=== PATIENT | female | born 1945 | race Caucasian/White ===

== ENCOUNTER 2017-06-21 10:56 | Inpatient (IN) | payer MEDICARE, OTHER ==
[~2017-06-21] VITALS: Ht 165.1 cm; Wt 88.0 kg
[~2017-06-21 10:56] MED LIST: ACET-812 PO; ADAL40PE SUBCUT; FLUO10CA30 PO; OMEP20CA10 PO; VITAMIN B 12 PO
[2017-06-21] MEDS ORDERED: normal saline 1000ML IV soln IVB ONE ×2 (11:30→14:10)
[2017-06-21] MEDS ORDERED: pantoprazole 40 MG vial IV ONE (11:30)
[2017-06-21 11:59] LABS: BASOPHILS % (AUTO) 0.1 % (0-1); EOSINOPHILS % (AUTO) 0.2 % (0-6); HEMATOCRIT 31.9 % (35.0-45.0); HEMOGLOBIN 10.7 g/dl (12.0-16.0); LYMPHOCYTES # (AUTO) 0.8 X10'3 (1.1-4.8); LYMPHOCYTES % (AUTO) 6.3 % (21-51); MEAN CORPUSCULAR HEMOGLOBIN 28.3 PG (27.0-31.0); MEAN CORPUSCULAR HGB CONC 33.7 % (33.0-36.5); MEAN CORPUSCULAR VOLUME 84.1 FL (78-98); MEAN PLATELET VOLUME 7.1 FL (7.4-10.4); MONOCYTES # (AUTO) 0.5 X10'3 (0-0.9); MONOCYTES % (AUTO) 3.4 % (2-12); NEUTROPHILS # (AUTO) 11.9 X10'3 (1.8-7.7); PLATELET COUNT 260 X10'3 (140-440); RED BLOOD COUNT 3.79 X10'6 (4.20-5.60); RED CELL DISTRIBUTION WIDTH 14.8 % (11.5-14.5); WHITE BLOOD COUNT 13.3 X10'3 (4.5-11.0)
[2017-06-21 12:15] LABS: ALANINE AMINOTRANSFERASE 16 U/L (12-78); ALBUMIN 2.8 G/DL (3.4-5.0); ALBUMIN/GLOBULIN RATIO 0.7 (1.1-1.5); ALKALINE PHOSPHATASE 65 IU/L (46-116); ANION GAP 10 (8-16); ASPARTATE AMINO TRANSFERASE 18 U/L (10-37); BILIRUBIN,TOTAL 0.3 MG/DL (0.1-1.0); BLOOD UREA NITROGEN 16 MG/DL (7-18); BUN/CREATININE RATIO 17.4 (6.6-38.0); CALCIUM 8.9 MG/DL (8.5-10.1); CHLORIDE 109 MMOL/L (99-107); CREATININE 0.92 MG/DL (0.40-0.90); GLUCOSE 107 MG/DL (70-104); SODIUM 142 MMOL/L (135-145); TOTAL CARBON DIOXIDE 22.9 MMOL/L (24-32); TOTAL PROTEIN 6.9 G/DL (6.4-8.2); eGFR 60 ML/MIN
[2017-06-21 13:08] LABS: CLARITY,URINE SLIGHTLY CLOUDY (Clear); COLOR,URINE YELLOW (Yellow); GLUCOSE, URINE NEGATIVE (Neg); KETONES,URINE NEGATIVE (Neg); LEUKOCYTE ESTERASE ,URINE NEGATIVE (Neg); NITRITES, URINE NEGATIVE (Neg); OCCULT BLOOD,URINE MODERATE (Neg); PH,URINE 5.5 (4.8-8.0); PROTEIN,URINE NEGATIVE (Neg); UROBILINOGEN,URINE 0.2 E.U/dL (0.2-1.0)
[2017-06-21 13:11] LABS: UA COLLECTION TYPE FOLEY CATH
[2017-06-21] MEDS ORDERED: CARV-50 PO (13:15)
[2017-06-21] MEDS ORDERED: PRED1TAB PO (13:15)
[2017-06-21] MEDS ORDERED: WARF2.5T82 PO (13:15)
[2017-06-21] MEDS ORDERED: ASPI-611 PO (13:15)
[2017-06-21] MEDS ORDERED: AMLO2.5T2 PO (13:15)
[2017-06-21] MEDS ORDERED: GABA-530 PO (13:15)
[2017-06-21] MEDS ORDERED: DONE5TAB26 PO (13:15)
[2017-06-21] MEDS ORDERED: SOTA80TA69 PO (13:15)
[2017-06-21] MEDS ORDERED: KRIL1CAP22 PR (13:15)
[2017-06-21] MEDS ORDERED: QUET25TA PO (13:15)
[2017-06-21] MEDS ORDERED: GLIM1TAB46 PO (13:15)
[2017-06-21] MEDS ORDERED: LOSA50TA3 PO (13:15)
[2017-06-21 13:19] LABS: BACTERIA,URINE FEW /HPF (Neg); MUCUS STRANDS FEW /LPF (Neg); SQUAMOUS EPITHELIAL CELL,UR FEW /LPF (FEW); WBC CLUMPS,URINE FEW /HPF (NEGATIVE)
[2017-06-21] MEDS ORDERED: piperacillin/tazo 3.375gm/50ml 50 ML IV ONE (14:05)
[2017-06-21] MEDS ORDERED: morphine 4 MG/ML inj SYRINge IV ONE (14:30)
[2017-06-21] MEDS ORDERED: OMEP-50 PO (14:44)
[2017-06-21] MEDS ORDERED: AMOX-580 PO (14:44)
[2017-06-21] MEDS ORDERED: LOSA25TA21 PO (14:44)
[2017-06-21] MEDS ORDERED: mag hydrox/Alum hydrox/simeth 30ml oral suspension PO PRN (15:15)
[2017-06-21] MEDS ORDERED: magnesium hydroxide 30ml (MOM) UD suspension PO PRN (15:15)
[2017-06-21] MEDS ORDERED: acetaminophen 650mg rectal suppository RC PRN (15:15)
[2017-06-21] MEDS ORDERED: diphenhydrAMINE 50 mg/ml inj IV PRN (15:15)
[2017-06-21] MEDS ORDERED: ondansetron/PF 4mg/2ml inj IV PRN (15:15)
[2017-06-21] MEDS ORDERED: diphenhydrAMINE 25mg capsule PO PRN (15:15)
[2017-06-21] MEDS ORDERED: metoclopramide 5 mg/ml inj IV PRN (15:15)
[2017-06-21] MEDS ORDERED: HYDROmorphone inj. 0.5 MG/0.5 ML DISP.SYRIN IV PRN ×2 (15:15)
[2017-06-21] MEDS ORDERED: bisacodyl 10mg suppository rectal RC PRN (15:15)
[2017-06-21] MEDS ORDERED: acetaminophen 325mg tablet PO PRN ×2 (15:15)
[2017-06-21] MEDS ORDERED: BUPIVAcaine/PF 2.5 mg/ml (0.25%) 30ml vial IJ ONE (15:25)
[2017-06-21] MEDS ORDERED: pantoprazole 40 MG vial IV SCH (15:25)
[2017-06-21 16:56] LABS: PARTIAL THROMBOPLASTIN TIME 27 SECONDS (22-32); PROTHROMBIN TIME 10.1 SECONDS (9.0-12.0)
[2017-06-21 16:58] LABS: HEMOGLOBIN A1C 5.5 % (4.5-6.2)
[2017-06-21] MEDS ORDERED: vancomycin inj 1,250 MG in normal saline 250ml IV soln 250 ML IV SCH (17:00)
[2017-06-21 17:14] LABS: CREATINE KINASE 13 U/L (26-192); LIPASE 119 U/L (73-393); MAGNESIUM 1.5 MG/DL (1.5-2.4); PHOSPHORUS 2.3 MG/DL (2.3-4.5)
[2017-06-21] MEDS: morphine 4 MG/ML inj SYRINge IV PRN (18:49)
[2017-06-21] MEDS: normal saline 1000ml 1,000 ML IV SCH (19:29)
[2017-06-21] MEDS ORDERED: vancomycin/NS 1 GM ADD-VANTAGE 250 ML IV SCH (20:00)
[2017-06-21] MEDS: acetaminophen 325mg tablet PO SCH (20:00)
[2017-06-21] MEDS ORDERED: temazepam 15mg capsule PO PRN (21:00)
[2017-06-21] MEDS: CefTRIAXone 2gm/NS 100ml IVPB 100 ML IV SCH (21:08)
[2017-06-21] MEDS: docusate sod 100mg capsule PO SCH (21:08)
[2017-06-22] VITALS (7 sets, daily range): BP systolic 114–152; BP diastolic 51–80
[2017-06-22] MEDS: normal saline 1000ml 1,000 ML IV SCH ×3 (01:14→17:19)
[2017-06-22 03:44] LABS: CHOL/HDL RATIO 2.3 (0.00-4.99); CHOLESTEROL 113 MG/DL (0-200); HDL CHOLESTEROL 49 MG/DL (35-60); LDL CHOLESTEROL 53 MG/DL (50-100); TRIGLYCERIDES 54 MG/DL (20-135); TROPONIN I < 0.04 NG/ML (0.0-0.05)
[2017-06-22] MEDS: morphine 4 MG/ML inj SYRINge IV PRN ×4 (03:48→20:12)
[2017-06-22] MEDS: vancomycin inj 1,250 MG in normal saline 250ml IV soln 250 ML IV SCH ×2 (05:31→17:19)
[2017-06-22] MEDS ORDERED: pantoprazole 40 MG vial IV SCH (08:00)
[2017-06-22] MEDS ORDERED: OMEPRAZOLE PO SCH (08:00)
[2017-06-22] MEDS: acetaminophen 325mg tablet PO SCH ×2 (09:04→20:13)
[2017-06-22] MEDS: losartan 25mg tablet PO SCH (09:04)
[2017-06-22] MEDS: docusate sod 100mg capsule PO SCH ×2 (09:04→20:13)
[2017-06-22] MEDS: CefTRIAXone 2gm/NS 100ml IVPB 100 ML IV SCH (09:05)
[2017-06-22 10:55] LABS: BASOPHILS % (AUTO) 0.3 % (0-1); EOSINOPHILS # (AUTO) 0.2 X10'3 (0-0.9); EOSINOPHILS % (AUTO) 1.3 % (0-6); HEMOGLOBIN 9.2 g/dl (12.0-16.0); LYMPHOCYTES # (AUTO) 1.6 X10'3 (1.1-4.8); LYMPHOCYTES % (AUTO) 13.5 % (21-51); MEAN CORPUSCULAR HEMOGLOBIN 28.6 PG (27.0-31.0); MEAN PLATELET VOLUME 6.9 FL (7.4-10.4); MONOCYTES # (AUTO) 0.8 X10'3 (0-0.9); MONOCYTES % (AUTO) 7.3 % (2-12); NEUTROPHILS # (AUTO) 8.9 X10'3 (1.8-7.7); NEUTROPHILS % (AUTO) 77.6 % (42-75); PLATELET COUNT 215 X10'3 (140-440); RED BLOOD COUNT 3.22 X10'6 (4.20-5.60); RED CELL DISTRIBUTION WIDTH 14.9 % (11.5-14.5); WHITE BLOOD COUNT 11.5 X10'3 (4.5-11.0)
[2017-06-22 11:13] LABS: ALANINE AMINOTRANSFERASE 13 U/L (12-78); ALBUMIN 2.3 G/DL (3.4-5.0); ALBUMIN/GLOBULIN RATIO 0.6 (1.1-1.5); ALKALINE PHOSPHATASE 50 IU/L (46-116); ANION GAP 10 (8-16); ASPARTATE AMINO TRANSFERASE 9 U/L (10-37); BILIRUBIN,TOTAL 0.4 MG/DL (0.1-1.0); BLOOD UREA NITROGEN 14 MG/DL (7-18); BUN/CREATININE RATIO 13.3 (6.6-38.0); CALCIUM 8.2 MG/DL (8.5-10.1); CHLORIDE 109 MMOL/L (99-107); CREATININE 1.05 MG/DL (0.40-0.90); GLUCOSE 104 MG/DL (70-104); POTASSIUM 3.6 MMOL/L (3.5-5.1); SODIUM 142 MMOL/L (135-145); TOTAL CARBON DIOXIDE 23.5 MMOL/L (24-32); eGFR 51 ML/MIN
[2017-06-22] MEDS: celeCOXIB 100mg capsule PO SCH ×2 (11:40→20:00)
[2017-06-22] MEDS: pantoprazole 40mg Tablet.DR PO SCH (11:50)
[2017-06-22] MEDS ORDERED: iohexol 350MG/ML 100ml bottle IV ONE (12:28)
[2017-06-22 12:50] LABS: % IRON SATURATION 5 % (11-46); IRON 12 UG/DL (49-151); TOTAL IRON BINDING CAPACITY 225 UG/DL (259-388)
[2017-06-22] MEDS: lactobacillus rhamnosus 10,000 MMU CELLS/CAPSULE PO SCH (20:12)
[2017-06-23] MEDS: morphine 4 MG/ML inj SYRINge IV PRN ×2 (00:31→09:03)
[2017-06-23 03:00] VITALS: BP 136/62
[2017-06-23] MEDS ORDERED: VANCOMYCIN LEVEL IV ONE (04:30)
[2017-06-23] MEDS: vancomycin inj 1,250 MG in normal saline 250ml IV soln 250 ML IV SCH (05:28)
[2017-06-23 05:35] LABS: BASOPHILS % (AUTO) 0.4 % (0-1); EOSINOPHILS # (AUTO) 0.1 X10'3 (0-0.9); EOSINOPHILS % (AUTO) 2.2 % (0-6); HEMATOCRIT 25.8 % (35.0-45.0); HEMOGLOBIN 8.7 g/dl (12.0-16.0); LYMPHOCYTES # (AUTO) 1.8 X10'3 (1.1-4.8); LYMPHOCYTES % (AUTO) 27.4 % (21-51); MEAN CORPUSCULAR HEMOGLOBIN 28.8 PG (27.0-31.0); MEAN CORPUSCULAR HGB CONC 33.6 % (33.0-36.5); MEAN CORPUSCULAR VOLUME 85.7 FL (78-98); MEAN PLATELET VOLUME 6.9 FL (7.4-10.4); MONOCYTES # (AUTO) 0.6 X10'3 (0-0.9); NEUTROPHILS # (AUTO) 3.9 X10'3 (1.8-7.7); PLATELET COUNT 201 X10'3 (140-440); RED BLOOD COUNT 3.01 X10'6 (4.20-5.60); RED CELL DISTRIBUTION WIDTH 14.7 % (11.5-14.5); WHITE BLOOD COUNT 6.4 X10'3 (4.5-11.0)
[2017-06-23 06:00] VITALS: BP 141/68
[2017-06-23] MEDS: docusate sod 100mg capsule PO SCH ×2 (08:00→20:28)
[2017-06-23] MEDS: celeCOXIB 100mg capsule PO SCH ×2 (08:00→14:27)
[2017-06-23] MEDS: acetaminophen 325mg tablet PO SCH ×2 (08:38→20:30)
[2017-06-23] MEDS: pantoprazole 40mg Tablet.DR PO SCH (08:39)
[2017-06-23] MEDS: losartan 25mg tablet PO SCH (08:39)
[2017-06-23] MEDS: lactobacillus rhamnosus 10,000 MMU CELLS/CAPSULE PO SCH ×2 (08:39→20:28)
[2017-06-23] MEDS: CefTRIAXone 2gm/NS 100ml IVPB 100 ML IV SCH (08:40)
[2017-06-23] MEDS: vancomycin/NS 1 GM ADD-VANTAGE 250 ML IV SCH ×2 (10:29→20:28)
[2017-06-23 10:58] LABS: ALBUMIN 2.2 G/DL (3.4-5.0); ANION GAP 7 (8-16); BLOOD UREA NITROGEN 10 MG/DL (7-18); BUN/CREATININE RATIO 10.6 (6.6-38.0); CALCIUM 8.5 MG/DL (8.5-10.1); CHLORIDE 112 MMOL/L (99-107); CREATININE 0.94 MG/DL (0.40-0.90); GLUCOSE 113 MG/DL (70-104); POTASSIUM 3.5 MMOL/L (3.5-5.1); SODIUM 144 MMOL/L (135-145); TOTAL CARBON DIOXIDE 24.9 MMOL/L (24-32); eGFR 58 ML/MIN
[2017-06-23 11:00] VITALS: BP 129/51
[2017-06-23 15:00] VITALS: BP 160/58
[2017-06-23 18:00] VITALS: BP 155/69
[2017-06-23] MEDS: normal saline 1000ml 1,000 ML IV SCH ×2 (18:37→23:07)
[2017-06-23] MEDS ORDERED: gadopentetate dimeglumine 7.5 MMOL/15 ML syringe ONE (19:49)
[2017-06-23 22:00] VITALS: BP 173/80
[2017-06-24 02:00] VITALS: BP 138/75
[2017-06-24 05:15] LABS: BASOPHILS % (AUTO) 0.7 % (0-1); EOSINOPHILS # (AUTO) 0.1 X10'3 (0-0.9); EOSINOPHILS % (AUTO) 2.9 % (0-6); HEMATOCRIT 25.2 % (35.0-45.0); HEMOGLOBIN 8.5 g/dl (12.0-16.0); LYMPHOCYTES # (AUTO) 1.3 X10'3 (1.1-4.8); LYMPHOCYTES % (AUTO) 29.5 % (21-51); MEAN CORPUSCULAR HEMOGLOBIN 28.4 PG (27.0-31.0); MEAN CORPUSCULAR HGB CONC 33.8 % (33.0-36.5); MEAN CORPUSCULAR VOLUME 84.2 FL (78-98); MEAN PLATELET VOLUME 7.1 FL (7.4-10.4); MONOCYTES # (AUTO) 0.4 X10'3 (0-0.9); MONOCYTES % (AUTO) 9.8 % (2-12); NEUTROPHILS # (AUTO) 2.6 X10'3 (1.8-7.7); NEUTROPHILS % (AUTO) 57.1 % (42-75); PLATELET COUNT 208 X10'3 (140-440); RED BLOOD COUNT 2.99 X10'6 (4.20-5.60); RED CELL DISTRIBUTION WIDTH 14.9 % (11.5-14.5); WHITE BLOOD COUNT 4.6 X10'3 (4.5-11.0)
[2017-06-24 05:24] LABS: ALBUMIN 1.9 G/DL (3.4-5.0); ANION GAP 8 (8-16); BLOOD UREA NITROGEN 9 MG/DL (7-18); BUN/CREATININE RATIO 10.2 (6.6-38.0); CALCIUM 8.3 MG/DL (8.5-10.1); CHLORIDE 114 MMOL/L (99-107); CREATININE 0.88 MG/DL (0.40-0.90); GLUCOSE 103 MG/DL (70-104); POTASSIUM 3.5 MMOL/L (3.5-5.1); SODIUM 147 MMOL/L (135-145); TOTAL CARBON DIOXIDE 24.7 MMOL/L (24-32); eGFR 63 ML/MIN
[2017-06-24 06:00] VITALS: BP 133/60
[2017-06-24] MEDS: lactobacillus rhamnosus 10,000 MMU CELLS/CAPSULE PO SCH (07:45)
[2017-06-24] MEDS: CefTRIAXone 2gm/NS 100ml IVPB 100 ML IV SCH (07:45)
[2017-06-24] MEDS: pantoprazole 40mg Tablet.DR PO SCH (07:45)
[2017-06-24] MEDS: celeCOXIB 100mg capsule PO SCH (07:45)
[2017-06-24] MEDS: acetaminophen 325mg tablet PO SCH (07:46)
[2017-06-24] MEDS: docusate sod 100mg capsule PO SCH (07:46)
[2017-06-24] MEDS: losartan 25mg tablet PO SCH (07:46)
[2017-06-24] MEDS ORDERED: CELE100C98 PO (09:35)
[2017-06-25] MEDS ORDERED: VANCOMYCIN LEVEL IV NR (07:30)
== END 2017-06-24 12:00 | disposition home or self-care (01) | DRG 871 ==
LOC: ER 10:56 → ED HOLD 15:14 → PCU 3S 06-22 00:31
PROVIDERS: ADMIT Family Medicine; ATTEND Family Medicine
PROC: 00JU3ZZ Inspection of Spinal Canal, Percutaneous Approach (ICD-10-PCS; 2017-06-21)
PROC: B3201ZZ Computerized Tomography (CT Scan) of Thoracic Aorta using Low Osmolar Contrast (ICD-10-PCS; principal; 2017-06-22)
PROC: BW38YZZ Magnetic Resonance Imaging (MRI) of Head using Other Contrast (ICD-10-PCS; 2017-06-23)
DX: A41.9 Sepsis, unspecified organism (principal); I50.31 Acute diastolic (congestive) heart failure; N17.9 Acute kidney failure, unspecified; E87.0 Hyperosmolality and hypernatremia; N12 Tubulo-interstitial nephritis, not specified as acute or chronic; J98.11 Atelectasis; I11.0 Hypertensive heart disease with heart failure; M45.9 Ankylosing spondylitis of unspecified sites in spine; L52 Erythema nodosum; K57.30 Diverticulosis of large intestine without perforation or abscess without bleeding; G93.9 Disorder of brain, unspecified; N20.0 Calculus of kidney; D64.9 Anemia, unspecified; K58.0 Irritable bowel syndrome with diarrhea; M19.90 Unspecified osteoarthritis, unspecified site; F32.9 Major depressive disorder, single episode, unspecified; M54.2 Cervicalgia; R21 Rash and other nonspecific skin eruption; Z90.710 Acquired absence of both cervix and uterus; Z88.5 Allergy status to narcotic agent; Z79.899 Other long term (current) drug therapy; Z86.711 Personal history of pulmonary embolism
CPT/HCPCS: 36415; 62270; 70450; 70553; 71046; 71275; 74176; 80048; 80053; 80061; 80202; 81001; 82550; 82607; 82746; 83036; 83540; 83550; 83605; 83690; 83735; 83880; 84100; 84145; 84443; 84484; 85025; 85610; 85651; 85730; 86140; 87040; 87070; 87088; 87502; 87503; 93306; 96361; 96365; 96375; 99285; A9579; C9113; J0696; J2270; J2405; J2543; J3370; J3490; J7030; Q9967

== ENCOUNTER 2018-06-02 20:24 | Emergency (ER) | payer MEDICARE, OTHER ==
[~2018-06-02] VITALS: Ht 167.6 cm; Wt 75.5 kg
[~2018-06-02 20:24] MED LIST changes: -ADAL40PE SUBCUT; +CELE100C98 PO; -FLUO10CA30 PO; +HYDR25CA PO; +LOSA25TA41 PO; -OMEP20CA10 PO
[2018-06-02 20:31] VITALS: BP 153/80
--- NOTE | 2018-06-02 23:30 | NUR ---
states sore throat x2 days with occasional body aches and x1 diarrhea this am, went to urgent care this am and Rx z-leonardo, states has taken throat lozenges and oxycodone for pain without relief, and is here for something else for pain "so I can at least swallow"
[2018-06-02] MEDS ORDERED: dexamethasone sod phosphate 10mg/ml inj PO STA (23:31)
[2018-06-02] MEDS ORDERED: LIDO20SO16 PO (23:34)
== END 2018-06-02 23:45 | disposition home or self-care (01) ==
LOC: ER 20:25
DX: J02.9 Acute pharyngitis, unspecified (principal); J06.9 Acute upper respiratory infection, unspecified; I10 Essential (primary) hypertension; M19.90 Unspecified osteoarthritis, unspecified site; Z98.890 Other specified postprocedural states; Z88.5 Allergy status to narcotic agent; Z79.899 Other long term (current) drug therapy
CPT/HCPCS: 99282; J1100

== ENCOUNTER 2019-02-18 05:26 | Day surgery (SDC) | payer MEDICARE, OTHER ==
[2019-02-11 14:42] LABS: BASOPHILS % (AUTO) 0.8 % (0-1); EOSINOPHILS # (AUTO) 0.1 X10'3 (0-0.9); EOSINOPHILS % (AUTO) 1.5 % (0-6); LYMPHOCYTES # (AUTO) 2.1 X10'3 (1.1-4.8); LYMPHOCYTES % (AUTO) 34.7 % (21-51); MEAN CORPUSCULAR HEMOGLOBIN 31.3 PG (27.0-31.0); MEAN CORPUSCULAR HGB CONC 34.3 g/dL (33.0-36.5); MEAN CORPUSCULAR VOLUME 91.3 FL (78-98); MEAN PLATELET VOLUME 6.8 FL (7.4-10.4); MONOCYTES # (AUTO) 0.4 X10'3 (0-0.9); MONOCYTES % (AUTO) 7.1 % (2-12); NEUTROPHILS # (AUTO) 3.4 X10'3 (1.8-7.7); NEUTROPHILS % (AUTO) 55.9 % (42-75); PRE OP HEMATOCRIT 35.1 % (35.0-45.0); PRE OP PLATELET COUNT 279 X10'3 (140-440); RED BLOOD COUNT 3.84 X10'6 (4.20-5.60); RED CELL DISTRIBUTION WIDTH 13.9 % (11.5-14.5)
[2019-02-11 14:48] LABS: PRE OP PROTIME 10.1 SECONDS (9.0-12.0)
[2019-02-11 14:50] LABS: ALBUMIN/GLOBULIN RATIO 0.8 (1.1-1.5); ALKALINE PHOSPHATASE 68 IU/L (46-116); BLOOD UREA NITROGEN 16 MG/DL (7-18); BUN/CREATININE RATIO 14.5 (6.6-38.0); CALCIUM 8.9 MG/DL (8.5-10.1); CHLORIDE 109 MMOL/L (99-107); PRE OP ALT 14 U/L (30-65); PRE OP ANION GAP 6 (8-16); PRE OP AST 8 U/L (10-37); PRE OP BILIRUB, TOTAL 0.3 MG/DL (0.0-1.0); PRE OP GLUCOSE 106 MG/DL (70-104); PRE OP POTASSIUM 3.9 MMOL/L (3.4-5.1); PRE OP SODIUM 144 MMOL/L (135-145); TOTAL CARBON DIOXIDE 28.7 MMOL/L (24-32); TOTAL PROTEIN 6.8 G/DL (6.4-8.2); eGFR 49 ML/MIN
[2019-02-18] VITALS (21 sets, daily range): BP systolic 112–141; BP diastolic 49–116
[~2019-02-18] VITALS: Ht 167.6 cm; Wt 83.9 kg
[~2019-02-18 05:26] MED LIST changes: -ACET-812 PO; +ADAL40PE SUBCUT; +BIOT300T7 PO; -CELE100C98 PO; +CHOL10002 PO; +EYE VITAMIN PO; -HYDR25CA PO; +IRON PO; +OMEP-50 PO; +VITAMIN B 12 IM; -VITAMIN B 12 PO
[2019-02-18] MEDS ORDERED: ampicillin inj 2 GM in normal saline 100ml IV soln 100 ML IV ONE (05:30)
[2019-02-18] MEDS ORDERED: GENTAMICIN IV ONE (05:30)
[2019-02-18] MEDS ORDERED: famotidine 20mg tablet PO ONE (05:30)
[2019-02-18] MEDS ORDERED: NORMAL SALINE IV ONE (05:30)
[2019-02-18] MEDS ORDERED: LIDOcaine 1% (10mg/ml) 2ml vial ONE (05:42)
[2019-02-18] MEDS: ringers solution, lacted 1,000 ML IV SCH ×2 (06:13→12:08)
[2019-02-18] MEDS ORDERED: iohexol 300 MG/1 ML 50ml polymer ONE (06:45)
[2019-02-18] MEDS ORDERED: methylene blue (5mg/ml) 50mg/10ml ampul IV ONE (06:45)
[2019-02-18] MEDS ORDERED: ringers solution, lacted 1,000 ML IV SCH (07:09)
[2019-02-18] MEDS ORDERED: labetalol 20mg/4ml (5mg/ml) syringe IV PRN (07:10)
[2019-02-18] MEDS ORDERED: morphine 4 MG/ML inj SYRINge IV PRN (07:10)
[2019-02-18] MEDS ORDERED: fentaNYL/PF 50MCG/1 ML 2ML syringe IV PRN (07:10)
[2019-02-18] MEDS ORDERED: hydrALAZINE 20mg/ml inj. IV PRN (07:10)
[2019-02-18] MEDS ORDERED: ondansetron/PF 4mg/2ml inj IV PRN ×2 (07:10→10:00)
[2019-02-18] MEDS ORDERED: fentaNYL /PF 50mcg/ml 5ml ampule ONE (07:27)
[2019-02-18] MEDS ORDERED: midazolam 2 mg/2 ml injection ONE (07:27)
[2019-02-18] MEDS ORDERED: propofol inj 20 ML IV ONE (07:29)
[2019-02-18] MEDS ORDERED: LIDOcaine 2% (20mg/ml) 5ml vial ONE (07:30)
[2019-02-18] MEDS ORDERED: ondansetron/PF 4mg/2ml inj ONE (07:30)
[2019-02-18] MEDS ORDERED: dexamethasone sod phosphate 4mg/ml inj. ONE (07:30)
[2019-02-18] MEDS ORDERED: glycopyrrolate 0.2mg/ml inj ONE (07:30)
[2019-02-18] MEDS ORDERED: neostigmine methylsulfate 1 MG/ML 10ml vial ONE (07:30)
[2019-02-18] MEDS ORDERED: rocuronium 10mg/ml inj IV ONE (07:30)
[2019-02-18] MEDS ORDERED: sevoflurane 250ml liquid IH ONE (07:37)
--- NOTE | 2019-02-18 09:51 | NUR ---
Received from OR via surgical bed, accompanied by Anesthesiologist NEMO and report given by Anesthesiolgist. Pt sleepy but responsive to questions. O2 mask at 10L sats >97%, patient VS stable, hawley catheter in place with dieter urine present. Allergies discussed with MD. Left flank dressing inspected, CDI. Pain states she has 8/10 pain, will medicate immediately. SCDs placed on patient, warming planket on patient, IVF 100cc/hr to left hand.
[2019-02-18] MEDS: morphine 4 MG/ML inj SYRINge IV PRN ×2 (10:00→10:17)
[2019-02-18] MEDS: potassium cl 20mEq in 1/2 NS 1,000 ML IV SCH ×2 (10:00→20:20)
[2019-02-18] MEDS: fentaNYL/PF 50MCG/1 ML 2ML syringe IV PRN ×2 (10:23→10:37)
--- NOTE | 2019-02-18 11:51 | NUR ---
Report called to receiving nurse Naina BANUELOS. Transferred via surgical bed. Belongings already in room. Special Issues communicated to receiving nurse. Dressing site shown to receiving nurse, BOBBY, communicated that port not to be touched by nursing. Post op VS stable, patient made comfortable and BLL, call light within reach. Family at bedside. SCDs remain on and foely cath remains present with dieter rust colored urine. Pt alert and oriented stable for transfer.
--- NOTE | 2019-02-18 12:21 | NUR ---
Received report from Recovery room by Naty. Pt alert and oriented.
[2019-02-18] MEDS: morphine 2 MG/ML inj. syringe IV PRN ×2 (14:29→20:13)
[2019-02-18] MEDS: ketorolac tromethamine 15mg/ml inj. IV PRN ×2 (16:36→23:00)
--- NOTE | 2019-02-18 18:19 | NUR ---
Informed Dr. Allen that pt has no code status, stated he would address.
--- NOTE | 2019-02-18 18:24 | NUR ---
Problems reprioritized. Patient report given, questions answered & plan of care reviewed with Prudence RN.
--- NOTE | 2019-02-18 18:49 | NUR ---
Patient in room [facility]. I have received report from Naina BANUELOS and had the opportunity to ask questions and assume patient care. patient stated she is feeling much better.
[2019-02-19] VITALS: BP 119/56
[2019-02-19] MEDS: potassium cl 20mEq in 1/2 NS 1,000 ML IV SCH ×2 (06:00→16:00)
--- NOTE | 2019-02-19 06:27 | NUR ---
Patient in room [facility]. I have received report from Radha BANUELOS and had the opportunity to ask questions and assume patient care.
--- NOTE | 2019-02-19 06:28 | NUR ---
Problems reprioritized. Patient report given, questions answered & plan of care reviewed with Nishi BANUELOS.
[2019-02-19] MEDS ORDERED: beta-carotene(A) w/C & E + minerals tab PO SCH (08:00)
[2019-02-19] MEDS ORDERED: pantoprazole 40mg Tablet.DR PO SCH (08:00)
[2019-02-19] MEDS ORDERED: losartan 50mg tablet PO SCH (08:00)
[2019-02-19] MEDS: ketorolac tromethamine 15mg/ml inj. IV PRN (08:19)
[2019-02-19 09:19] LABS: BASOPHILS % (AUTO) 0.2 % (0-1); EOSINOPHILS % (AUTO) 0.1 % (0-6); HEMATOCRIT 32.5 % (35.0-45.0); LYMPHOCYTES # (AUTO) 1.9 X10'3 (1.1-4.8); LYMPHOCYTES % (AUTO) 18.3 % (21-51); MEAN CORPUSCULAR HEMOGLOBIN 31.3 PG (27.0-31.0); MEAN CORPUSCULAR HGB CONC 33.7 g/dL (33.0-36.5); MEAN CORPUSCULAR VOLUME 92.7 FL (78-98); MEAN PLATELET VOLUME 6.8 FL (7.4-10.4); MONOCYTES # (AUTO) 0.6 X10'3 (0-0.9); MONOCYTES % (AUTO) 6.2 % (2-12); NEUTROPHILS # (AUTO) 7.7 X10'3 (1.8-7.7); NEUTROPHILS % (AUTO) 75.2 % (42-75); PLATELET COUNT 245 X10'3 (140-440); RED BLOOD COUNT 3.51 X10'6 (4.20-5.60); RED CELL DISTRIBUTION WIDTH 13.6 % (11.5-14.5); WHITE BLOOD COUNT 10.2 X10'3 (4.5-11.0)
[2019-02-19 09:28] LABS: ALBUMIN 2.7 G/DL (3.4-5.0); ANION GAP 6 (8-16); BLOOD UREA NITROGEN 21 MG/DL (7-18); BUN/CREATININE RATIO 14.2 (6.6-38.0); CALCIUM 8.8 MG/DL (8.5-10.1); CHLORIDE 107 MMOL/L (99-107); CREATININE 1.48 MG/DL (0.40-0.90); GLUCOSE 117 MG/DL (70-104); POTASSIUM 4.5 MMOL/L (3.5-5.1); SODIUM 138 MMOL/L (135-145); TOTAL CARBON DIOXIDE 24.7 MMOL/L (24-32); eGFR 34 ML/MIN
[2019-02-19] MEDS ORDERED: MORP30TA PO (10:09)
[2019-02-19] MEDS ORDERED: DOCU-148 PO (10:09)
[2019-02-19] MEDS: morphine IR (immed. release) 30mg tablet PO PRN ×2 (11:58→17:46)
[2019-02-19 12:00] VITALS: BP 154/86
--- NOTE | 2019-02-19 13:45 | NUR ---
Dr Biggs from Radiology called regading pt's X-ray results stating pt has a Pneumothorax on pt's x-ray dated 02/18/19 and needed me to get ahold of Dr. Allen to see results and to order a 2nd X-ray to verify findings. Spoke to Dr Perez ( nutrition counselor for [facility]) and she ordered a second xray. She also wants to be called when x-ray results are in.
--- NOTE | 2019-02-19 14:53 | NUR ---
Dr Perez called pt and explain results of her X-rays and discussed with pt about discharge orders. Pt verbalized understanding and asked questions about her care. Pt will be discharge when her family is able to come get her.
[2019-02-19 16:24] VITALS: BP 125/60
--- NOTE | 2019-02-19 18:40 | NUR ---
Pt discharge to home top be cared for by her sister and two nieces. She is A & O, and in no apparent discomfort. Her medication was e-faxed to [facility] [address] and Prescription was handed to her to take to her pharmacy. Pt's belongins were packed and carried out by pt's family. She was wheeled out by [facility] staff member and driven by her family on their personal vehicle.
[2019-02-20] MEDS ORDERED: docusate sod 250mg capsule PO SCH (08:00)
[2019-02-20] MEDS ORDERED: OCUVITE PO (19:29)
[2019-03-01] MEDS ORDERED: ADALIMUMAB SQ SCH (08:00)
== END 2019-02-19 18:52 | disposition home or self-care (01) ==
LOC: PAS 05:26 → SUR 3N 09:56 → PAS 02-19 18:52
PROVIDERS: ATTEND Urology
DX: N20.0 Calculus of kidney (principal); I10 Essential (primary) hypertension; K21.9 Gastro-esophageal reflux disease without esophagitis; Z87.891 Personal history of nicotine dependence; Z79.01 Long term (current) use of anticoagulants; Z88.5 Allergy status to narcotic agent; Z88.8 Allergy status to other drugs, medicaments and biological substances; Z79.899 Other long term (current) drug therapy; Z98.890 Other specified postprocedural states; Z90.710 Acquired absence of both cervix and uterus; Z87.440 Personal history of urinary (tract) infections
CPT/HCPCS: 36415; 52332; 52352; 71045; 71046; 77002; 80048; 80053; 82948; 85025; 85610; 85730; 86885; 86900; 86901; C1729; C1758; C1769; C1894; C2617; C2628; J0290; J1100; J1580; J1885; J2001; J2250; J2270; J2405; J2704; J2710; J3010; J7030; J7120; Q9967; Q9968; A4338; A4355; A4402; A4618; A6449; A7000; G0378; J3480; J3490

== ENCOUNTER 2019-02-20 13:33 | Inpatient (IN) | payer MEDICARE, OTHER ==
[~2019-02-20] VITALS: Ht 170.2 cm; Wt 80.0 kg
[~2019-02-20 13:33] MED LIST changes: +DOCU-148 PO; +MORP30TA PO
[2019-02-20] MEDS ORDERED: acetaminophen 325mg tablet PO STA (14:21)
[2019-02-20 14:50] LABS: BASOPHILS % (AUTO) 0.2 % (0-1); EOSINOPHILS % (AUTO) 0 % (0-6); HEMOGLOBIN 11.4 g/dl (12.0-16.0); LYMPHOCYTES % (AUTO) 10.6 % (21-51); MEAN CORPUSCULAR HGB CONC 33.5 g/dL (33.0-36.5); MEAN CORPUSCULAR VOLUME 92.6 FL (78-98); MONOCYTES % (AUTO) 10.7 % (2-12); NEUTROPHILS # (AUTO) 7.4 X10'3 (1.8-7.7); NEUTROPHILS % (AUTO) 78.5 % (42-75); PLATELET COUNT 230 X10'3 (140-440); RED BLOOD COUNT 3.67 X10'6 (4.20-5.60); RED CELL DISTRIBUTION WIDTH 13.5 % (11.5-14.5); WHITE BLOOD COUNT 9.4 X10'3 (4.5-11.0)
[2019-02-20 15:07] LABS: ALANINE AMINOTRANSFERASE 19 U/L (12-78); ALBUMIN 2.6 G/DL (3.4-5.0); ALBUMIN/GLOBULIN RATIO 0.7 (1.1-1.5); ALKALINE PHOSPHATASE 62 IU/L (46-116); ANION GAP 9 (8-16); ASPARTATE AMINO TRANSFERASE 16 U/L (10-37); BILIRUBIN,TOTAL 0.7 MG/DL (0.1-1.0); BLOOD UREA NITROGEN 26 MG/DL (7-18); BUN/CREATININE RATIO 11.1 (6.6-38.0); CALCIUM 8.9 MG/DL (8.5-10.1); CHLORIDE 104 MMOL/L (99-107); CREATININE 2.34 MG/DL (0.40-0.90); GLUCOSE 109 MG/DL (70-104); POTASSIUM 4.2 MMOL/L (3.5-5.1); SODIUM 137 MMOL/L (135-145); TOTAL CARBON DIOXIDE 24.1 MMOL/L (24-32); TOTAL PROTEIN 6.6 G/DL (6.4-8.2); eGFR 20 ML/MIN
[2019-02-20 15:38] LABS: CLARITY,URINE CLOUDY (Clear); COLOR,URINE YELLOW (Yellow); GLUCOSE, URINE NEGATIVE (Neg); KETONES,URINE NEGATIVE (Neg); LEUKOCYTE ESTERASE ,URINE TRACE (Neg); NITRITES, URINE NEGATIVE (Neg); OCCULT BLOOD,URINE LARGE (Neg); PH,URINE 5.5 (4.8-8.0); PROTEIN,URINE 100 mg/dl (Neg); UROBILINOGEN,URINE 0.2 E.U/dL (0.2-1.0)
[2019-02-20 15:44] LABS: UA COLLECTION TYPE CLN CATCH MIDSTREAM
[2019-02-20] MEDS ORDERED: acetaminophen 325mg tablet PO PRN (15:50)
[2019-02-20 15:52] LABS: BACTERIA,URINE 1+ /HPF (Neg); MUCUS STRANDS NONE SEEN /LPF (Neg); RBC,URINE TNTC /HPF (0-2); SQUAMOUS EPITHELIAL CELL,UR FEW /LPF (FEW); WBC,URINE 20-30 /HPF (0-4)
[2019-02-20] MEDS: mag hydrox/Alum hydrox/simeth 30ml oral suspension PO PRN (16:25)
[2019-02-20] MEDS: CefTRIAXone 2gm/D5W 50ml 50 ML IV SCH (16:25)
[2019-02-20] MEDS: normal saline 1000ml 1,000 ML IV SCH (16:25)
[2019-02-20] MEDS: ondansetron/PF 4mg/2ml inj IV PRN (16:25)
--- NOTE | 2019-02-20 17:25 | NUR ---
Patient arrived to unit after report from Alejandro in ER.
[2019-02-20 17:44] VITALS: BP 136/63
--- NOTE | 2019-02-20 18:53 | NUR ---
Patient in room [facility]. I have received report from Mindi BANUELOS and had the opportunity to ask questions and assume patient care. Pt is sitting up in bad working on dinner and answering admit questions with the resource nurse. No signs of distress, will continue to monitor.
[2019-02-20] MEDS ORDERED: OCUVITE PO (19:29)
[2019-02-20 20:00] VITALS: BP 124/62
[2019-02-20] MEDS: ipratropium/albuterol 3ml nebule NEB SCH (21:58)
[2019-02-21] VITALS: BP 111/52
[2019-02-21] MEDS: ipratropium/albuterol 3ml nebule NEB SCH ×4 (02:49→23:00)
[2019-02-21] MEDS: normal saline 1000ml 1,000 ML IV SCH (05:29)
--- NOTE | 2019-02-21 06:25 | NUR ---
Problems reprioritized. Patient report given, questions answered & plan of care reviewed with Mayelin BANUELOS.
[2019-02-21 06:39] LABS: BASOPHILS % (AUTO) 0.2 % (0-1); EOSINOPHILS % (AUTO) 0.7 % (0-6); HEMATOCRIT 28.7 % (35.0-45.0); HEMOGLOBIN 9.9 g/dl (12.0-16.0); LYMPHOCYTES # (AUTO) 1.5 X10'3 (1.1-4.8); LYMPHOCYTES % (AUTO) 21.2 % (21-51); MEAN CORPUSCULAR HEMOGLOBIN 31.7 PG (27.0-31.0); MEAN CORPUSCULAR HGB CONC 34.4 g/dL (33.0-36.5); MEAN PLATELET VOLUME 7.1 FL (7.4-10.4); MONOCYTES # (AUTO) 0.8 X10'3 (0-0.9); MONOCYTES % (AUTO) 12.1 % (2-12); NEUTROPHILS # (AUTO) 4.6 X10'3 (1.8-7.7); NEUTROPHILS % (AUTO) 65.8 % (42-75); PLATELET COUNT 195 X10'3 (140-440); RED BLOOD COUNT 3.12 X10'6 (4.20-5.60); RED CELL DISTRIBUTION WIDTH 13.3 % (11.5-14.5); WHITE BLOOD COUNT 6.9 X10'3 (4.5-11.0)
[2019-02-21 06:40] LABS: ALBUMIN 2.2 G/DL (3.4-5.0); ANION GAP 8 (8-16); BLOOD UREA NITROGEN 22 MG/DL (7-18); BUN/CREATININE RATIO 15.1 (6.6-38.0); CALCIUM 8.5 MG/DL (8.5-10.1); CHLORIDE 107 MMOL/L (99-107); CREATININE 1.46 MG/DL (0.40-0.90); GLUCOSE 103 MG/DL (70-104); POTASSIUM 4.4 MMOL/L (3.5-5.1); SODIUM 139 MMOL/L (135-145); TOTAL CARBON DIOXIDE 24.4 MMOL/L (24-32); eGFR 35 ML/MIN
[2019-02-21 07:30] VITALS: BP 129/65
[2019-02-21] MEDS: CefTRIAXone 2gm/D5W 50ml 50 ML IV SCH (07:48)
[2019-02-21] MEDS: mag hydrox/Alum hydrox/simeth 30ml oral suspension PO PRN (07:52)
[2019-02-21] MEDS ORDERED: ADALIMUMAB SQ SCH (08:30)
[2019-02-21] MEDS: losartan 25mg tablet PO SCH (09:53)
[2019-02-21] MEDS: morphine 2 MG/ML inj. syringe IV PRN ×2 (09:57→19:15)
[2019-02-21] MEDS: ondansetron/PF 4mg/2ml inj IV PRN ×2 (09:57→19:13)
[2019-02-21 12:42] VITALS: BP 130/64
--- NOTE | 2019-02-21 18:24 | NUR ---
Problems reprioritized. Patient report given, questions answered & plan of care reviewed with LAKISHA Canas.
--- NOTE | 2019-02-21 19:01 | NUR ---
Patient in room [facility]. I have received report from Mayelin BANUELOS and had the opportunity to ask questions and assume patient care.
[2019-02-21] MEDS: magnesium hydroxide 30ml (MOM) UD suspension PO PRN (19:13)
[2019-02-21] MEDS: docusate sod 100mg capsule PO SCH (19:13)
[2019-02-21 20:00] VITALS: BP 133/67
[2019-02-22 00:41] VITALS: BP 120/52
[2019-02-22] MEDS: ipratropium/albuterol 3ml nebule NEB SCH ×4 (02:36→22:02)
[2019-02-22 04:58] LABS: BASOPHILS % (AUTO) 0.3 % (0-1); EOSINOPHILS # (AUTO) 0.1 X10'3 (0-0.9); EOSINOPHILS % (AUTO) 1.8 % (0-6); HEMATOCRIT 27.5 % (35.0-45.0); HEMOGLOBIN 9.4 g/dl (12.0-16.0); LYMPHOCYTES # (AUTO) 1.6 X10'3 (1.1-4.8); MEAN CORPUSCULAR HEMOGLOBIN 31.4 PG (27.0-31.0); MEAN CORPUSCULAR HGB CONC 34.3 g/dL (33.0-36.5); MEAN CORPUSCULAR VOLUME 91.6 FL (78-98); MEAN PLATELET VOLUME 7.2 FL (7.4-10.4); MONOCYTES # (AUTO) 0.5 X10'3 (0-0.9); MONOCYTES % (AUTO) 10.2 % (2-12); NEUTROPHILS # (AUTO) 2.6 X10'3 (1.8-7.7); NEUTROPHILS % (AUTO) 53.7 % (42-75); PLATELET COUNT 218 X10'3 (140-440); RED BLOOD COUNT 3.01 X10'6 (4.20-5.60); RED CELL DISTRIBUTION WIDTH 13.1 % (11.5-14.5); WHITE BLOOD COUNT 4.9 X10'3 (4.5-11.0)
[2019-02-22 05:19] LABS: ALBUMIN 2.1 G/DL (3.4-5.0); ANION GAP 4 (8-16); BLOOD UREA NITROGEN 15 MG/DL (7-18); BUN/CREATININE RATIO 15.8 (6.6-38.0); CALCIUM 8.7 MG/DL (8.5-10.1); CHLORIDE 108 MMOL/L (99-107); CREATININE 0.95 MG/DL (0.40-0.90); GLUCOSE 101 MG/DL (70-104); POTASSIUM 3.8 MMOL/L (3.5-5.1); SODIUM 141 MMOL/L (135-145); TOTAL CARBON DIOXIDE 28.9 MMOL/L (24-32); eGFR 58 ML/MIN
--- NOTE | 2019-02-22 06:40 | NUR ---
Problems reprioritized. Patient report given, questions answered & plan of care reviewed with Mayelin BANUELOS.
[2019-02-22 07:25] VITALS: BP 128/50
[2019-02-22] MEDS: docusate sod 100mg capsule PO SCH ×2 (08:13→20:44)
[2019-02-22] MEDS: pantoprazole 40mg Tablet.DR PO SCH (08:13)
[2019-02-22] MEDS: losartan 25mg tablet PO SCH (08:13)
[2019-02-22] MEDS: morphine 2 MG/ML inj. syringe IV PRN (08:14)
[2019-02-22] MEDS: CefTRIAXone 2gm/D5W 50ml 50 ML IV SCH (08:14)
[2019-02-22] MEDS: ondansetron/PF 4mg/2ml inj IV PRN (08:16)
[2019-02-22] MEDS: magnesium hydroxide 30ml (MOM) UD suspension PO PRN ×2 (08:20→20:45)
[2019-02-22 11:31] VITALS: BP 127/71
--- NOTE | 2019-02-22 12:07 | NUR ---
c. Addendum: 02/22/19 at 1207 by West JUDGE d/c urinary catheter without complication per m Addendum: 02/22/19 at 1208 by West BYRNES-LILIA d/c urinary catheter without complication per md dominguez
--- NOTE | 2019-02-22 15:16 | NUR ---
Sent page to PICC RN.. Jose, Rogers 354A : patient needs PIV for IV abx. very hard stick, could you come take a look? thank you, charli [phone]
--- NOTE | 2019-02-22 15:38 | NUR ---
Page to hospitalist: Rogers Acosta : Cannot get IV access and PICC nurse is unavailable to do US guided... can I get a PO pain med? mayelin [id number] Addendum: 02/22/19 at 1800 by Mayelin Thompson RN @[id number]. received order for tylenol PO.
[2019-02-22] MEDS: acetaminophen 325mg tablet PO PRN (17:19)
--- NOTE | 2019-02-22 18:27 | NUR ---
Problems reprioritized. Patient report given, questions answered & plan of care reviewed with LAKISHA EASTMAN.
--- NOTE | 2019-02-22 18:45 | NUR ---
Patient in room [facility]. I have received report from Mayeiln BANUELOS and had the opportunity to ask questions and assume patient care.
[2019-02-22 20:00] VITALS: BP 113/55
[2019-02-23 00:24] VITALS: BP 125/56
[2019-02-23] MEDS: ipratropium/albuterol 3ml nebule NEB SCH ×3 (03:00→14:15)
[2019-02-23 05:02] LABS: BASOPHILS % (AUTO) 0.8 % (0-1); EOSINOPHILS # (AUTO) 0.1 X10'3 (0-0.9); EOSINOPHILS % (AUTO) 2.9 % (0-6); HEMATOCRIT 28.2 % (35.0-45.0); HEMOGLOBIN 9.7 g/dl (12.0-16.0); LYMPHOCYTES # (AUTO) 1.4 X10'3 (1.1-4.8); LYMPHOCYTES % (AUTO) 30.2 % (21-51); MEAN CORPUSCULAR HEMOGLOBIN 31.3 PG (27.0-31.0); MEAN CORPUSCULAR HGB CONC 34.4 g/dL (33.0-36.5); MEAN CORPUSCULAR VOLUME 91.2 FL (78-98); MEAN PLATELET VOLUME 7.2 FL (7.4-10.4); MONOCYTES # (AUTO) 0.6 X10'3 (0-0.9); MONOCYTES % (AUTO) 12.7 % (2-12); NEUTROPHILS # (AUTO) 2.5 X10'3 (1.8-7.7); NEUTROPHILS % (AUTO) 53.4 % (42-75); PLATELET COUNT 249 X10'3 (140-440); RED BLOOD COUNT 3.09 X10'6 (4.20-5.60); RED CELL DISTRIBUTION WIDTH 13.3 % (11.5-14.5); WHITE BLOOD COUNT 4.7 X10'3 (4.5-11.0)
[2019-02-23 05:21] LABS: ALBUMIN 2.1 G/DL (3.4-5.0); ANION GAP 2 (8-16); BLOOD UREA NITROGEN 15 MG/DL (7-18); BUN/CREATININE RATIO 14.7 (6.6-38.0); CALCIUM 8.5 MG/DL (8.5-10.1); CHLORIDE 107 MMOL/L (99-107); CREATININE 1.02 MG/DL (0.40-0.90); GLUCOSE 113 MG/DL (70-104); POTASSIUM 3.9 MMOL/L (3.5-5.1); SODIUM 143 MMOL/L (135-145); TOTAL CARBON DIOXIDE 33.8 MMOL/L (24-32); eGFR 53 ML/MIN
[2019-02-23 06:30] VITALS: BP 141/70
--- NOTE | 2019-02-23 06:30 | NUR ---
Patient in room [facility]. I have received report from LAKISHA Canas and had the opportunity to ask questions and assume patient care.
--- NOTE | 2019-02-23 06:46 | NUR ---
Problems reprioritized. Patient report given, questions answered & plan of care reviewed with Priscilla RN.
[2019-02-23] MEDS: losartan 25mg tablet PO SCH (08:12)
[2019-02-23] MEDS: docusate sod 100mg capsule PO SCH (08:12)
[2019-02-23] MEDS: pantoprazole 40mg Tablet.DR PO SCH (08:12)
[2019-02-23] MEDS: acetaminophen 325mg tablet PO PRN (08:14)
--- NOTE | 2019-02-23 08:45 | NUR ---
Dr Clements notified no IV & pt refuses to have another IV start attempted (Multiple attempts yesterday on day & noc shift). Also, unable to give ceftriaxone due to no IV.
[2019-02-23] MEDS ORDERED: bisacodyl 10mg suppository rectal RC STA (10:36)
[2019-02-23] MEDS ORDERED: ciprofloxacin 250mg tablet PO ONE (10:40)
[2019-02-23 11:00] VITALS: BP 142/58
[2019-02-23] MEDS ORDERED: POLY17PO10 PO (11:28)
--- NOTE | 2019-02-23 15:50 | NUR ---
DC inst provided to pt. No IV. All belongings sent w/pt. WC to front lobby.
[2019-02-28] MEDS ORDERED: ADALIMUMAB SQ SCH (10:30)
== END 2019-02-23 15:49 | disposition home or self-care (01) | DRG 683 ==
LOC: ER 13:34 → ED HOLD 15:50 → SUR 3N 17:21
PROVIDERS: ADMIT Family Medicine; ATTEND Family Medicine
DX: N17.0 Acute kidney failure with tubular necrosis (principal); N39.0 Urinary tract infection, site not specified; J98.11 Atelectasis; J90 Pleural effusion, not elsewhere classified; F32.9 Major depressive disorder, single episode, unspecified; K21.9 Gastro-esophageal reflux disease without esophagitis; M19.90 Unspecified osteoarthritis, unspecified site; Z96.0 Presence of urogenital implants; I10 Essential (primary) hypertension; Z87.891 Personal history of nicotine dependence; Z90.710 Acquired absence of both cervix and uterus; Z88.0 Allergy status to penicillin; Z88.5 Allergy status to narcotic agent; Z79.899 Other long term (current) drug therapy
CPT/HCPCS: 36415; 71045; 71046; 74176; 76604; 77002; 80048; 80053; 81001; 82948; 83605; 85025; 85610; 85730; 86885; 86900; 86901; 87040; 87081; 87088; 88300; 93005; 94640; 94760; 97116; 97161; 97530; 99285; G0378; J0696; J2270; J2405; J7030

== ENCOUNTER 2020-03-25 11:26 | Emergency (ER) | payer MEDICARE, OTHER ==
[~2020-03-25] VITALS: Ht 167.6 cm; Wt 75.9 kg
[~2020-03-25 11:26] MED LIST changes: -EYE VITAMIN PO; -MORP30TA PO; +OCUVITE PO
[2020-03-25 12:33] LABS: HEMATOCRIT 38.8 % (35.0-45.0); MEAN CORPUSCULAR HEMOGLOBIN 30.1 PG (27.0-31.0); MEAN CORPUSCULAR HGB CONC 33.5 g/dL (33.0-36.5); MEAN CORPUSCULAR VOLUME 89.9 FL (78-98); MONOCYTES # (AUTO) 0.4 X10'3 (0-0.9)
[2020-03-25 12:35] LABS: BASOPHILS % (AUTO) 0.2 % (0-1); EOSINOPHILS % (AUTO) 0.2 % (0-6); LYMPHOCYTES % (AUTO) 20.6 % (21-51); MEAN PLATELET VOLUME 7.6 FL (7.4-10.4); MONOCYTES % (AUTO) 7.6 % (2-12); NEUTROPHILS # (AUTO) 3.5 X10'3 (1.8-7.7); NEUTROPHILS % (AUTO) 71.4 % (42-75); PLATELET COUNT 189 X10'3 (140-440); RED BLOOD COUNT 4.32 X10'6 (4.20-5.60); RED CELL DISTRIBUTION WIDTH 14.1 % (11.5-14.5); WHITE BLOOD COUNT 4.9 X10'3 (4.5-11.0)
[2020-03-25 12:49] LABS: D-DIMER 0.29 MG/L FEU (0-0.50); PARTIAL THROMBOPLASTIN TIME 28 SECONDS (22-32)
[2020-03-25 12:53] LABS: ALANINE AMINOTRANSFERASE 20 U/L (12-78); ALBUMIN 3.3 G/DL (3.4-5.0); ALBUMIN/GLOBULIN RATIO 0.8 (1.1-1.5); ALKALINE PHOSPHATASE 68 IU/L (46-116); ANION GAP 8 (8-16); ASPARTATE AMINO TRANSFERASE 20 U/L (10-37); BILIRUBIN,TOTAL 0.3 MG/DL (0.1-1.0); BLOOD UREA NITROGEN 15 MG/DL (7-18); BUN/CREATININE RATIO 14.2 (6.6-38.0); CALCIUM 9.9 MG/DL (8.5-10.1); CHLORIDE 105 MMOL/L (99-107); CREATININE 1.06 MG/DL (0.40-0.90); GLUCOSE 117 MG/DL (70-104); SODIUM 139 MMOL/L (135-145); TOTAL CARBON DIOXIDE 26.5 MMOL/L (24-32); TOTAL PROTEIN 7.3 G/DL (6.4-8.2); eGFR 51 ML/MIN
[2020-03-25] MEDS ORDERED: iohexol 350MG/ML 100ml bottle IV ONE (13:25)
[2020-03-25] MEDS ORDERED: normal saline 1000ML IV soln IVB ONE (14:10)
[2020-03-25] MEDS ORDERED: DOXY100C76 PO (14:44)
[2020-03-25 15:39] VITALS: BP 174/96
== END 2020-03-25 15:40 | disposition home or self-care (01) ==
LOC: ER 11:26
DX: U07.1 COVID-19 (principal); R91.8 Other nonspecific abnormal finding of lung field; R59.0 Localized enlarged lymph nodes; N28.9 Disorder of kidney and ureter, unspecified; I10 Essential (primary) hypertension; M19.90 Unspecified osteoarthritis, unspecified site; Z88.0 Allergy status to penicillin; Z88.6 Allergy status to analgesic agent; Z88.8 Allergy status to other drugs, medicaments and biological substances; Z79.2 Long term (current) use of antibiotics; Z79.899 Other long term (current) drug therapy
CPT/HCPCS: 36415; 71045; 71275; 80053; 83880; 84484; 85025; 85379; 85610; 85730; 93005; 99285; J7030; Q9967